=== PATIENT | female | born 2000 | race Caucasian/White ===

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

== ENCOUNTER 2021-08-25 16:51 | Emergency (ER) | payer OTHER ==
[2021-08-25 17:25] LABS: PTT,PARTIAL THROMBOPLSTIN TIME 24.1 SEC (20.5-30.9)
[2021-08-25 17:30] LABS: CHLORIDE,CL 103 mmol/L (98-107); SODIUM,NA 139 mmol/L (136-145)
[2021-08-25 17:31] LABS: ANION GAP 17.6 mmol/L (5-15); ESTIMATED GFR 132 mL/min (>=60)
== END 2021-08-25 19:42 | disposition home or self-care (01) ==
LOC: VM.ED 16:51
DX: R10.10 Upper abdominal pain, unspecified (principal); M54.50 Low back pain, unspecified; Z91.048 Other nonmedicinal substance allergy status
CPT/HCPCS: 36415; 71045; 72100; 72170; 80053; 81001; 85025; 85610; 85730; 86140; 87086; 99284-25